=== PATIENT | male | born 1960 | race Two or more races ===

== ENCOUNTER 2017-12-13 13:37 | Emergency (ER) | payer OTHER ==
[2017-12-13 13:45] VITALS: BP 181/114; PULSE 104; TEMP 97.3; BMI 30.2
[2017-12-13] MEDS ORDERED: IBUPROFEN 400 MG TABLET (FP) PO ONE ×2 (14:15→14:20)
--- NOTE | 2017-12-13 14:15 | PDOC ---
History of Present Illness - General Chief Complaint: Injury Stated Complaint: LT SIDE INJURY Time Seen by Provider: 12/13/17 13:47 History Source: Patient Exam Limitations: No Limitations - History of Present Illness Initial Comments: 12/13/17 14:50 Patient is a 57-year-old male who presents to the ER today after a slip and fall in the shower on Thursday. Patient states he is getting in the shower when he slipped and his L ribs landed against the sink. He states that it hurts to take a deep breath and can't get comfortable when laying down. The pain is worse when he touches it. Denies LOC, head trauma, difficulty breathing, shortness of breath, nausea, vomiting. Past History - Travel Traveled outside of the country in the last 30 days: No Close contact w/someone who was outside of country & ill: No - Past Medical History Allergies/Adverse Reactions: Allergies Allergy/AdvReac Type Severity Reaction Status Date / Time No Known Allergies Allergy Verified 12/13/17 13:45 Home Medications: Ambulatory Orders Ibuprofen 800 mg PO TID #30 tablet 12/13/17 COPD: No Other medical history: poor leg circulation - Suicide/Smoking/Psychosocial Hx Smoking History: Never smoked Review of Systems - Review of Systems Able to Perform ROS?: Yes Comments:: 12/13/17 14:43 CONSTITUTIONAL: Absent: fever, chills, diaphoresis, generalized weakness, malaise, loss of appetite MUSCULOSKELETAL: Present: L rib pain Absent: myalgia, arthralgia, joint swelling SKIN: Absent: rash, itching, pallor, bruising HEMATOLOGIC/IMMUNOLOGIC: Absent: easy bleeding, easy bruising, lymphadenopathy, frequent infections NEUROLOGIC: Absent: headache, focal weakness or paresthesias, dizziness, unsteady gait, seizure, mental status changes, bladder or bowel incontinence Is the patient limited [place] proficient: No *Physical Exam - Vital Signs Last Vital Signs Temp Pulse Resp BP Pulse Ox 97.3 F L 104 H 20 181/114 100 12/13/17 13:41 12/13/17 13:41 12/13/17 13:41 12/13/17 13:41 12/13/17 13:41 - Physical Exam Comments: 12/13/17 14:48 GENERAL: Well developed, well nourished. Awake and alert. No acute distress. PULMONARY: No evidence of respiratory distress. Lungs clear to auscultation bilaterally. No wheezing, rales or rhonchi. MUSCULOSKELETAL TTP of L ribs 7-10. Normal range of motion at all joints. No bony deformities or tenderness. No CVA tenderness. EXTREMITIES: No cyanosis. No clubbing. No edema. No calf tenderness. SKIN: Warm and dry. Normal capillary refill. No rashes. No jaundice. NEUROLOGICAL: Alert, awake, appropriate. Cranial nerves 2-12 intact. No deficits to light touch and temperature in face, upper extremities and lower extremities. No motor deficits in the in face, upper extremities and lower extremities. Normoreflexic in the upper and lower extremities. Normal speech. Toes are down- going bilaterally. Gait is normal without ataxia. Medical Decision Making - Medical Decision Making 12/13/17 14:52 Patient is a 57-year-old male who presents emergency Department with left rib pain after falling against the sink when getting out of the shower on Thursday. Rib x-ray is negative at this time. Most likely a bone bruise or muscle spasm. We'll treat with ibuprofen. Return precautions given. Patient says all discharge instructions and all questions were answered. *DC/Admit/Observation/Transfer Diagnosis at time of Disposition: Rib pain on left side - Discharge Dispostion Disposition: HOME Condition at time of disposition: Stable Decision to Admit order: No - Prescriptions Prescriptions: Ibuprofen 800 mg PO TID #30 tablet - Referrals Referrals: Krystal Johnson [Primary Care Provider] - - Patient Instructions Printed Discharge Instructions: DI for Rib Contusion Additional Instructions: Your x-ray was negative today for broken bones. Please take Motrin 800 mg every 8 hours for your pain. Do not exceed 3000 mg a day. He may use heat or ice to the area which ever is more comfortable for you. Please follow-up with your primary care doctor this week. Return to the emergency department if you have difficulty breathing, shortness of breath, worsening pain, or give any changes in your symptoms. - Post Discharge Activity Forms/Work/School Notes: Back to Work
== END 2017-12-13 15:05 | disposition home or self-care (01) ==
LOC: JERFT 13:37
DX: S20.212A Contusion of left front wall of thorax, initial encounter (principal); W18.2XXA Fall in (into) shower or empty bathtub, initial encounter; Y93.E1 Activity, personal bathing and showering; Y92.031 Bathroom in apartment as the place of occurrence of the external cause; Y99.8 Other external cause status
CPT/HCPCS: 71101-TC-FY; 99281-25